=== PATIENT | female | born 1975 ===

== ENCOUNTER 2019-06-25 19:46 | Emergency (ER) | payer MEDICAID ==
[~2019-06-25] VITALS: Ht 185.4 cm; Wt 99.8 kg
[2019-06-25 20:00] VITALS: BP_SYST 140
[2019-06-25] MEDS ORDERED: GLU500 PO (20:07)
[2019-06-25] MEDS ORDERED: DEXAMETHASONE SOD PHOSPHATE 10 MG/ML VIAL IM ONE (20:30)
[2019-06-25] MEDS ORDERED: KETOROLAC TROMETHAMINE 60 MG/2 ML VIAL IM ONE (20:30)
[2019-06-25] MEDS ORDERED: HYDROcodone/ACETAMIN 7.5-325 MG TAB PO ONE (21:00)
[2019-06-25] MEDS ORDERED: MORPHINE SULFATE 10 MG/ML VIAL IM ONE (22:30)
[2019-06-25] MEDS ORDERED: DIPHENHYDRAMINE INJ 50 MG/ML VIAL IM ONE (22:30)
[2019-06-25 23:10] VITALS: BP_SYST 138
== END 2019-06-25 23:10 | disposition home or self-care (01) ==
LOC: SED 19:46
DX: M54.32 Sciatica, left side (principal); E11.9 Type 2 diabetes mellitus without complications; Z79.84 Long term (current) use of oral hypoglycemic drugs
CPT/HCPCS: 81002; 81025; 96372; 99283; J1100; J1200; J1885; J2270